=== PATIENT | female | born 1955 | race Caucasian/White ===

== ENCOUNTER 2016-07-07 07:21 | Observation (INO) | payer OTHER, BC ==
[2016-07-07] MEDS ORDERED: Nitroglycerin TAB 0.4 MG* 0.4 MG TAB SL ONE (08:23)
[2016-07-07] MEDS ORDERED: NS 0.9% 1000 ML* 1,000 ML IV SCH (08:30)
--- NOTE | 2016-07-07 08:52 | RAD ---
INDICATION: Chest pain. COMPARISON: There are no prior studies available for comparison. TECHNIQUE: A portable view of the chest was obtained. FINDINGS: Cardiac and mediastinal contours appear to be within normal limits. The lungs are clear. No pleural effusion is seen. IMPRESSION: NO EVIDENCE FOR ACUTE DISEASE.
[2016-07-07 08:53] LABS: Hematocrit 38 % (35-47); Hemoglobin 13.1 g/dl (12.0-16.0); Mean Corpuscular HGB Conc 34 g/dl (31-36); Mean Corpuscular Hemoglobin 33 pg (27-31); Mean Corpuscular Volume 96 fL (80-97); Mean Platelet Volume 9 um3 (7.4-10.4); Red Blood Count 3.99 10^6/ul (4.0-5.4); Red Cell Distribution Width 13 % (10.5-15); White Blood Count 8.7 10^3/ul (3.5-10.8)
[2016-07-07 09:16] LABS: Albumin 4.5 g/dL (3.2-5.2); BUN/Creatinine Ratio 18.8 (8-20); C Reactive Protein 1.11 mg/L (< 5.00); EGFR African American 112.4 (>60); EGFR Non-African American 87.4 (>60); Globulin 2.6 g/dL (2-4); Magnesium 1.6 mg/dL (1.9-2.7); Potassium 3.7 mmol/L (3.5-5.0); Total Bilirubin 0.8 mg/dL (0.2-1.0); Total Protein 7.1 g/dL (6.4-8.9)
[2016-07-07 09:31] LABS: TSH (Thyroid Stimulating Horm) 1.64 mcIU/mL (0.34-5.60)
[2016-07-07] MEDS ORDERED: Magnesium Sulfate 2 GM IV* 2 GM/50 ML BAG IVPB ONE (09:36)
[2016-07-07] MEDS ORDERED: NS 0.9% 1000 ML* 1,000 ML IV ONE (12:51)
--- NOTE | 2016-07-07 15:59 | ED ---
Derek Montoya Matthew, scribed for Chucho Dodson MD on 07/07/16 at 0849 . HPI Chest Pain - HPI Summary HPI Summary: A 60 y/o female presents to the ED with mid-sternal chest pain since 06:30. The worst pain lasted for 5 minutes, and has since partially alleviated. The pain was 9/10 at its worst and is currently rated 2/10 in severity. The pain did not radiate. Associated symptoms include dizziness, lightheadedness, palpitations described as pounding and fast, nausea, diaphoresis, and SOB. The patient denies calf pain. 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 She states these symptoms could be from her anxiety, which caused similar symptoms 5 years ago. She had a stress test at that time. The nitroglycerin helped to relief the patent's pain. FHx of CAD - mother [place] at 60, first cousin [place] at 60. PHHx of HTN, HLD, No Diabetes. The patient does not smoke. - History of Current Complaint Chief Complaint: EDChestPainROMI Time Seen by Provider: 07/07/16 08:05 Hx Obtained From: Patient Onset/Duration: Started Hours Ago, Atraumatic, Still Present Time of Onset: 06:30 Timing: Constant Initial Severity: Moderate Current Severity: Mild Pain Intensity: 2 Pain Scale Used: 0-10 Numeric Chest Pain Location: Mid Sternal Chest Pain Radiates: No Character: Fast, Pounding Associated Signs and Symptoms: Positive: Chest Pain - Allergy/Home Medications Allergies/Adverse Reactions: Allergies Allergy/AdvReac Type Severity Reaction Status Date / Time Codeine Allergy severe Verified 07/07/16 08:07 headaches PMH/Surg Hx/FS Hx/Imm Hx Endocrine/Hematology History: Denies: Hx Diabetes Cardiovascular History: Reports: Hx Hypercholesterolemia, Hx Hypertension Infectious Disease History: Reports: Traveled Outside the [place] in Last 30 Days - [place] - Family History Known Family History: Positive: Cardiac Disease - Social History Alcohol Use: None Substance Use Type: Reports: None Smoking Status (MU): Never Smoked Tobacco Review of Systems Positive: Skin Diaphoresis Eyes: Negative ENT: Negative Positive: Palpitations, Chest Pain Positive: Shortness Of Breath Positive: Nausea Genitourinary: Negative Musculoskeletal: Negative Skin: Negative Neurological: Other - lightheadedness, dizziness Positive: Anxious All Other Systems Reviewed And Are Negative: Yes Physical Exam Triage Information Reviewed: Yes Vital Signs On Initial Exam: Initial Vitals Temp Pulse Resp BP Pulse Ox 98.7 F 91 18 136/86 99 07/07/16 07:28 07/07/16 07:28 07/07/16 07:28 07/07/16 07:28 07/07/16 07:28 Vital Signs Reviewed: Yes Appearance: Positive: Well-Appearing, No Pain Distress Skin: Positive: Warm, Dry Eyes: Positive: EOMI, DARRION ENT: Positive: Normal ENT inspection Neck: Positive: Supple, Nontender Respiratory/Lung Sounds: Positive: Clear to Auscultation, Breath Sounds Present Cardiovascular: Positive: RRR Abdomen Description: Positive: Nontender, Soft Bowel Sounds: Positive: Present Musculoskeletal: Positive: Strength/ROM Intact Neurological: Positive: Alert, Oriented to Person Place, Time Psychiatric: Positive: Anxious - mildly - [place] Coma Scale Coma Scale Total: 15 Diagnostics - Vital Signs Vital Signs Temp Pulse Resp BP Pulse Ox 07/07/16 07:45 82 97 07/07/16 07:43 136/86 07/07/16 07:28 98.7 F 91 18 136/86 99 - Laboratory Lab Results: Lab Results 07/07/16 07/07/16 07/07/16 Range/Units 08:40 08:40 08:40 WBC 8.7 (3.5-10.8) 10^3/ul RBC 3.99 L (4.0-5.4) 10^6/ul Hgb 13.1 (12.0-16.0) g/dl Hct 38 (35-47) % MCV 96 (80-97) fL MCH 33 H (27-31) pg MCHC 34 (31-36) g/dl RDW 13 (10.5-15) % Plt Count 200 (150-450) 10^3/ul MPV 9 (7.4-10.4) um3 Neut % (Auto) 64.5 (38-83) % Lymph % (Auto) 24.0 L (25-47) % Hudson % (Auto) 7.9 (1-9) % Eos % (Auto) 3.0 (0-6) % Baso % (Auto) 0.6 (0-2) % Absolute Neuts (auto) 5.6 (1.5-7.7) 10^3/ul Absolute Lymphs (auto) 2.1 (1.0-4.8) 10^3/ul Absolute Monos (auto) 0.7 (0-0.8) 10^3/ul Absolute Eos (auto) 0.3 (0-0.6) 10^3/ul Absolute Basos (auto) 0.1 (0-0.2) 10^3/ul Absolute Nucleated RBC 0 10^3/ul Nucleated RBC % 0 INR (Anticoag Therapy) 0.89 (0.89-1.11) APTT 22.5 L (26.0-36.3) seconds D-Dimer, Quantitative < 200 (Less Than 230) ng/mL Sodium 133 (133-145) mmol/L Potassium 3.7 (3.5-5.0) mmol/L Chloride 99 L (101-111) mmol/L Carbon Dioxide 25 (22-32) mmol/L Anion Gap 9 (2-11) mmol/L BUN 13 (6-24) mg/dL Creatinine 0.69 (0.51-0.95) mg/dL Est GFR ( Amer) 112.4 (>60) Est GFR (Non-Af Amer) 87.4 (>60) BUN/Creatinine Ratio 18.8 (8-20) Glucose 107 H (70-100) mg/dL Lactic Acid (0.5-2.0) mmol/L Calcium 10.0 (8.6-10.3) mg/dL Magnesium 1.6 L (1.9-2.7) mg/dL Total Bilirubin 0.80 (0.2-1.0) mg/dL AST 21 (13-39) U/L ALT 17 (7-52) U/L Alkaline Phosphatase 52 (34-104) U/L Total Creatine Kinase 69 (10-223) U/L CK-MB (CK-2) 2.0 (0.6-6.3) ng/mL Troponin I 0.00 (<0.04) ng/mL C-Reactive Protein 1.11 (< 5.00) mg/L B-Natriuretic Peptide ( - 100) pg/mL Total Protein 7.1 (6.4-8.9) g/dL Albumin 4.5 (3.2-5.2) g/dL Globulin 2.6 (2-4) g/dL Albumin/Globulin Ratio 1.7 (1-3) Lipase 21 (11.0-82.0) U/L TSH 1.64 (0.34-5.60) mcIU/mL 07/07/16 07/07/16 Range/Units 08:40 08:40 WBC (3.5-10.8) 10^3/ul RBC (4.0-5.4) 10^6/ul Hgb (12.0-16.0) g/dl Hct (35-47) % MCV (80-97) fL MCH (27-31) pg MCHC (31-36) g/dl RDW (10.5-15) % Plt Count (150-450) 10^3/ul MPV (7.4-10.4) um3 Neut % (Auto) (38-83) % Lymph % (Auto) (25-47) % Hudson % (Auto) (1-9) % Eos % (Auto) (0-6) % Baso % (Auto) (0-2) % Absolute Neuts (auto) (1.5-7.7) 10^3/ul Absolute Lymphs (auto) (1.0-4.8) 10^3/ul Absolute Monos (auto) (0-0.8) 10^3/ul Absolute Eos (auto) (0-0.6) 10^3/ul Absolute Basos (auto) (0-0.2) 10^3/ul Absolute Nucleated RBC 10^3/ul Nucleated RBC % INR (Anticoag Therapy) (0.89-1.11) APTT (26.0-36.3) seconds D-Dimer, Quantitative (Less Than 230) ng/mL Sodium (133-145) mmol/L Potassium (3.5-5.0) mmol/L Chloride (101-111) mmol/L Carbon Dioxide (22-32) mmol/L Anion Gap (2-11) mmol/L BUN (6-24) mg/dL Creatinine (0.51-0.95) mg/dL Est GFR ( Amer) (>60) Est GFR (Non-Af Amer) (>60) BUN/Creatinine Ratio (8-20) Glucose (70-100) mg/dL Lactic Acid 1.6 (0.5-2.0) mmol/L Calcium (8.6-10.3) mg/dL Magnesium (1.9-2.7) mg/dL Total Bilirubin (0.2-1.0) mg/dL AST (13-39) U/L ALT (7-52) U/L Alkaline Phosphatase (34-104) U/L Total Creatine Kinase (10-223) U/L CK-MB (CK-2) (0.6-6.3) ng/mL Troponin I (<0.04) ng/mL C-Reactive Protein (< 5.00) mg/L B-Natriuretic Peptide 29 ( - 100) pg/mL Total Protein (6.4-8.9) g/dL Albumin (3.2-5.2) g/dL Globulin (2-4) g/dL Albumin/Globulin Ratio (1-3) Lipase (11.0-82.0) U/L TSH (0.34-5.60) mcIU/mL Result Diagrams: 07/07/16 08:40 07/07/16 08:40 Lab Statement: Any lab studies that have been ordered have been reviewed, and results considered in the medical decision making process. - Radiology CXR Xray Interpretation: No Acute Changes - IMPRESSION: NO EVIDENCE FOR ACUTE DISEASE. Radiology Interpretation Completed By: Radiologist - EKG 07:38 Cardiac Rate: NL - 77 bpm EKG Rhythm: Sinus Rhythm Ectopy: None EKG Interpretation: Flipped T Waves in lead III Chest Pain Course/Dx - Course Assessment/Plan: PAIN IMPROVED WITH NITROGLYCERIN. DISCUSSED WITH DR VELEZ. PLAN FOR STRESS ECHO TODAY. ADMIT HOSPITALIST STABLE. - Diagnoses Provider Diagnoses: CHEST PAIN R/O ACS - Provider Notifications Discussed Care Of Patient With: Dr. Velez (Cardologist) at 12:02 -- Notified of patient's history and recommends repeating the troponin. If the troponin is normal, he'll take the patient to have a stress echo. Discharge - Discharge Plan Condition: Stable Disposition: ADMITTED TO [facility] documentation as recorded by the Derek carlson Matthew accurately reflects the service I personally performed and the decisions made by me, Chucho Dodson MD.
[2016-07-07] MEDS ORDERED: hydrALAZINE IV* 20 MG/ML VIAL IV SLOW PU PRN (18:07)
[2016-07-07] MEDS: LORazepam TAB(*) 0.5 MG PO PRN (18:27)
[2016-07-07] MEDS ORDERED: Atorvastatin* 10 MG TAB PO SCH (21:00)
--- NOTE | 2016-07-07 22:48 | HP ---
HISTORY AND PHYSICAL: DATE OF ADMISSION: 07/07/16 TIME OF EVALUATION: 1:25 p.m. PRIMARY CARE PROVIDER: Dr. Delilah Humphrey, store operations specialist in [place], phone number [phone]. CHIEF COMPLAINT: Chest pain. HISTORY OF PRESENT ILLNESS: Ms. Stephen Stanley is a 60-year-old lady with a past medical history of hypertension, hyperlipidemia, anxiety who presented to the emergency room with complaints of chest pain and palpitations. 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 She thought her blood pressure was probably high and took her lisinopril. She went to the bathroom and started to feel dizzy, lightheaded, diaphoretic. She called her to come and pick her up, but one of the airport paramedics measured her blood pressure, and she remembers the systolic was 190 and EMS was called. Per EMS note, the patient had offered similar complaints, and she received nitroglycerin and aspirin. First blood pressure on the EMS note was 176/82 with a heart rate of 113. The patient denies episodes like this in the past, but she states she is anxious and under a lot of stress at work and also with her family as a cousin recently of heart attack. PAST MEDICAL HISTORY: 1. Hypertension. 2. Hyperlipidemia. 3. History of ankle surgery. MEDICATIONS: 1. Lisinopril 10 mg p.o. daily. 2. Atorvastatin 10 mg p.o. at bedtime. ALLERGIES: CODEINE; she experienced headache. FAMILY HISTORY: Mother of cardiac arrhythmia in her 60s. Father had heart attack in his 60s and there is this cousin that passed recently of a heart attack. He was in his 60s also. SOCIAL HISTORY: The patient was a smoker from age 20 to her 40s, maximum half a pack a day. She drinks 2 to 3 glasses of wine a day, 5 days a week. No history of drug use. She drinks 2 cups of regular coffee a day. Surrogate decision maker is her , Thom Stanley, phone number is [phone]. PHYSICAL EXAMINATION GENERAL: The patient is a pleasant lady lying in the ER stretcher in no acute distress. VITAL SIGNS: Temperature 98.7, heart rate is 65, respiratory rate is 18, oxygen saturation 96% on room air, blood pressure is 116/76. HEENT: Pupils are equal. Moist mucous membranes. CHEST: Breath sounds bilaterally with no added sounds. CVS: Normal S1, S2. Regular rate and rhythm. ABDOMEN: Soft, nontender, nondistended. Bowel sounds are present. EXTREMITIES: No edema. NEUROLOGIC: She is alert and oriented x3, able to move all 4 extremities. LABORATORY AND IMAGING DATA: The patient had a CBC that showed WBC of 8.7, hemoglobin of 13.1, hematocrit of 38, platelets of 200 with 64% neutrophils. INR 0.89. D-dimer is less than 200. Chemistry was normal except for a chloride of 99, glucose of 107, magnesium of 1.6. First troponin was 0. Chest x-ray showed no evidence for acute disease. EKG done on July 07 at 7: 38 a.m. showed sinus rhythm at 77 beats per minute with T-inversions in 3, flat Ts in aVF. There is no prior EKG to compare. Another EKG was done the same day at 12:36 with similar appearance. ASSESSMENT AND PLAN: Ms. Stephen Stanley is a 60-year-old lady with past medical history of hypertension and hyperlipidemia who presents to the emergency room with complaints of chest pain, palpitations, lightheadedness in the setting of elevated blood pressure. 1. Chest pain, rule out acute coronary syndrome: The patient will be admitted as observation to the telemetry floor where she is going to have serial troponins to rule out acute coronary syndrome. If this is ruled out, she is going to undergo a stress echocardiogram. The patient received a dose of nitroglycerin and aspirin on the field and she had already taken her lisinopril earlier. 2. Hypertensive urgency: I believe her symptoms are likely secondary to uncontrolled blood pressure. She reports that the paramedics in the airport measured her blood pressure. She remembers her systolic was 190 and documentation by EMS is systolic of 170, but she had already taken her lisinopril. At this time, her systolic is 116/76 and her symptoms are resolved. This may be secondary to chronically uncontrolled high blood pressure or an exacerbation in the setting of anxiety. In any case, we are going to check a stress echo, but if this is normal, I believe she will benefit of outpatient monitoring of her blood pressure. 3. Hyperlipidemia: We will continue atorvastatin. 4. DVT prophylaxis: The patient has a score of 1 on the DVT Prophylaxis Risk Assessment Guide and we are going to encourage ambulation. TIME SPENT: Approximately 45 minutes were spent with this patient and family interview, medical records review, physical examination to complete this admission, more than half this time was spent [id number] with the patient and coordination of care. CC: Dr. Delilah Humphrey, store operations specialist in [place], phone number [phone] [id number]/[facility] #: [id number] [facility] CENTERJenny
[2016-07-08] MEDS: LORazepam TAB(*) 0.5 MG PO PRN (05:43)
[2016-07-08 08:27] LABS: Urine Bacteria Absent (Absent); Urine Bilirubin Negative (Negative); Urine Glucose Negative (Negative); Urine Nitrite Negative (Negative)
[2016-07-08] MEDS ORDERED: Lisinopril TAB* 10 MG PO SCH (09:00)
[2016-07-08] MEDS ORDERED: Aspirin EC Low Dose* 81 MG TAB.EC PO SCH (09:00)
[2016-07-08 13:20] VITALS: BP 140/78
--- NOTE | 2016-07-09 01:51 | DS ---
DISCHARGE SUMMARY: DATE OF ADMISSION: 07/07/16 DATE OF DISCHARGE: 07/08/16 ATTENDING PHYSICIAN: Barbara Patton MD *(DICTATED BY EVELINA ROLDAN NP) HOSPITAL STATUS: Observation in clinical decision unit. PRIMARY DIAGNOSES: 1. Chest pain and hypertension, suspect secondary to anxiety. 2. Hypomagnesemia. SECONDARY DIAGNOSES: 1. Hypertension. 2. Hyperlipidemia. DISCHARGE MEDICATIONS: 1. Lisinopril 10 mg p.o. daily. 2. Atorvastatin 10 mg p.o. at bedtime. 3. Magnesium oxide 400 mg p.o. daily. HISTORY OF PRESENT ILLNESS AND HOSPITAL COURSE: Please see history and physical by Dr. Lizama for full admission details, but in summary, this is a 60- year-old female who presented to the emergency department on 07/07/16 complaining of chest pain and palpitations. The patient reported that she was in her usual state around 5:30 a.m. 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 She thought her blood pressure was probably high, so she took her lisinopril. She went to the bathroom, started to feel dizzy, lightheaded, diaphoretic. She called her to pick her up and one of the airport paramedics took her blood pressure and she remembers that it was systolically around 190 and EMS was called. Per EMS, she received a nitroglycerin and an aspirin. The first blood pressure noted on the EMS record was 176/82 with a heart rate of 113. On arrival to the emergency department, the patient's blood pressure on admission was 136/86. Her blood pressure has stayed systolically between 103 to 148 throughout her entire admission with no further noted hypertensive episodes. In discussing at length with the patient today, the patient reports that she was under an extraordinary amount of stress due to her job and felt very anxious which is common for her. She is requesting that I increase her lisinopril on discharge; however, she has been normotensive on her home dose of lisinopril throughout hospitalization. The patient also underwent a stress echo which was negative showing normal maximal stress echo with a low-risk study with no arrhythmias and no induced chest pain. I suspect the patient's episode of chest pain and palpitations were secondary to anxiety. I discussed with the patient at length that she should follow up with her primary care provider and it is possible that she may benefit from a medication, but also to use techniques such as relaxation and meditation to increase her coping mechanisms with the anxiety. She reports that when she is at home, she does not have sensations of anxiety. The patient denies suicidal ideation and reports her anxiety is all related around her work. The patient is stable for discharge to home. Her is at the bedside and agrees with the plan of care. Besides a of 1.6, her labs were unremarkable. Chest x-ray, 07/07/16: "No evidence for acute disease." EKG, impression: Sinus rhythm with a rate of 71. No acute ischemic changes noted. DISCHARGE PLAN: 1. The patient will be discharged to home. 2. The patient was instructed to follow up with her primary care provider, Dr. Delilah Humphrey, in [place], [place], this week. We discussed following up with her primary about anxiety and her episode of hypertension, which again is thought to all be secondary to anxiety. The patient was given one small dose of Ativan , which she reports did help at admission and would like to discuss with her primary care provider starting a medication for anxiety. Again, I discussed with the patient that she should practice daily meditation and breathing techniques. She was instructed to return to the emergency department if she has any further concerning or worrisome symptoms. 3. The patient should have a magnesium level next week after being on supplementation for 5 to 7 days. TIME SPENT: Approximately 50 minutes was spent on this discharge. EVELINA ROLDAN, MAGDY [id number]/[facility] #: [id number] MIREYA
== END 2016-07-08 15:10 | disposition home or self-care (01) ==
LOC: ED 07:21 → MEDTELE 13:14
PROVIDERS: ADMIT Internal Medicine; ATTEND Hospitalist
DX: R07.9 Chest pain, unspecified (principal); I16.0 Hypertensive urgency; F41.9 Anxiety disorder, unspecified; E83.42 Hypomagnesemia; E78.5 Hyperlipidemia, unspecified; R94.31 Abnormal electrocardiogram [ECG] [EKG]; Z79.899 Other long term (current) drug therapy; Z88.5 Allergy status to narcotic agent; Z87.891 Personal history of nicotine dependence; R06.02 Shortness of breath
CPT/HCPCS: 36415; 71010; 80053; 81003; 81015; 82550; 82553; 83605; 83690; 83735; 83880; 84443; 84484; 85025; 85379; 85610; 85730; 86140; 87086; 93005; 93350; 96361; 96365; 99284; A9270-GY; G0378